=== PATIENT | male | born 1985 | race Two or more races ===

== ENCOUNTER 2021-02-26 10:01 | Inpatient (IN) | payer OTHER ==
[~2021-02-26] VITALS: Ht 177.8 cm; Wt 78.5 kg
[2021-02-26] MEDS ORDERED: ACETAMINOPHEN 325 MG TABLET PO PRN (10:30)
[2021-02-26 10:39] LABS: EOSINOPHILS % (AUTO) 1.1 % (1.0-6.0); HEMATOCRIT 44.2 % (41-53); HEMOGLOBIN 13.9 g/dL (13.5-17.5); LYMPHOCYTES # (AUTO) 1.6 K/uL (1.0-4.8); MEAN CORPUSCULAR HEMOGLOBIN 21.7 pg (26.0-34.0); MEAN CORPUSCULAR HGB CONC 31.5 G/dL (31.0-37.0); MEAN CORPUSCULAR VOLUME 69 fL (80-100); MONOCYTES # (AUTO) 1.1 K/uL (0.1-1.0); MONOCYTES % (AUTO) 7.8 % (2.0-9.0); NEUTROPHILS # (AUTO) 11.6 K/uL (1.8-7.7); NEUTROPHILS % (AUTO) 79.1 % (40.0-70.0); PLATELET COUNT (AUTO) 282 K/uL (150-450); RED BLOOD CELL COUNT(AUTO) 6.42 MIL/uL (4.50-5.90); RED CELL DISTRIBUTION WIDTH 16.9 % (11.5-14.5)
[2021-02-26 10:52] LABS: COVID AG,FIA SOURCE NASOPHARYNGEAL
[2021-02-26 10:58] LABS: ANION GAP 7 mmol/L (8-16); CALCIUM, TOTAL 8.9 mg/dL (8.8-10.5); CARBON DIOXIDE 30 mmol/L (22-29); CHLORIDE 107 mmol/L (98-107); CREATININE 0.79 mg/dL (0.60-1.30); GLOMERULAR FILTR. RATE CALC > 60 mL/min (>60); GLUCOSE,RANDOM 87 mg/dL (70-110); POTASSIUM 4.8 mmol/L (3.5-5.1); SODIUM SERUM 144 mmol/L (136-145); UREA NITROGEN, BLOOD 15 mg/dL (7-18)
[2021-02-26 11:12] LABS: ALANINE AMINOTRANSFERASE 54 U/L (12-78); ALBUMIN 4.2 g/dL (3.4-5.0); ALKALINE PHOSPHATASE 78 U/L (46-116); ASPARTATE AMINOTRANSFERASE 31 U/L (15-37); CHOL/HDL RATIO 2.4 (4.2-7.3); CHOLESTEROL 154 mg/dL (131-200); FREE T4 (FREE THYROXINE) 1.12 ng/dL (0.76-1.46); HDL CHOLESTEROL 63 mg/dL (40-60); LDL CHOL (CALC.) 79 mg/dL (0-130); THYROID STIMULATING HORMONE 0.77 uIU/mL (0.36-3.74); TOTAL PROTEIN, SERUM 7.3 g/dL (6.4-8.2); TRIGLYCERIDES 61 mg/dL (15-150)
[2021-02-26] MEDS ORDERED: 0.9% SODIUM CHLORIDE 10 ML SYRINGE IVP PRN (12:15)
[2021-02-26] MEDS ORDERED: IPRATROPIUM BROMIDE 0.5 MG/2.5 ML NEB SOLUTION NEB PRN (12:15)
[2021-02-26] MEDS ORDERED: BISACODYL 10 MG RECTAL RECTAL SUPPOSITORY PR PRN (12:15)
[2021-02-26] MEDS ORDERED: ONDANSETRON HCL 4 MG/2 ML VIAL IVP PRN (12:15)
[2021-02-26] MEDS ORDERED: MAGNESIUM HYDROXIDE SUSPENSION 30 ML UDCUP PO PRN (12:15)
[2021-02-26] MEDS ORDERED: ALBUTEROL SULFATE 2.5 MG/0.5 ML NEB SOLUTION NEB PRN (12:15)
[2021-02-26] MEDS: PANTOPRAZOLE SODIUM 40 MG DR TABLET PO SCH (12:34)
[2021-02-26 12:51] LABS: % IRON SATURATION 46.1 % (30-44); IRON, SERUM 174 mcg/dL (50-175); TOTAL IRON BINDING CAPACITY 377 mcg/dL (250-450)
[2021-02-26 13:04] LABS: FERRITIN 187 ng/mL (26-388)
[2021-02-26] MEDS ORDERED: SODIUM CHLORIDE 0.9% 1,000 ML IV SCH (16:00)
[2021-02-26] MEDS: TraMADol HCL 50 MG TABLET PO PRN ×2 (16:25→20:15)
[2021-02-26] MEDS: ACETAMINOPHEN 325 MG TABLET PO PRN (17:37)
[2021-02-26 17:42] VITALS: BP 122/78
[2021-02-26 20:15] VITALS: BP 121/69
[2021-02-27] MEDS ORDERED: IOHEXOL 350 MG/ML 100 ML VIAL ONE (02:47)
[2021-02-27] MEDS ORDERED: SODIUM CHLORIDE 0.9% 100 ML ONE (02:47)
[2021-02-27 03:55] VITALS: BP 109/67
[2021-02-27] MEDS: TraMADol HCL 50 MG TABLET PO PRN ×3 (05:18→20:54)
[2021-02-27] MEDS ORDERED: SODIUM CHLORIDE 0.9% 1,000 ML ONE (06:35)
[2021-02-27] MEDS: SODIUM CHLORIDE 0.9% 1,000 ML IV SCH (06:54)
[2021-02-27 07:33] LABS: BASOPHILS % (AUTO) 1.3 % (0.0-2.0); HEMATOCRIT 40.8 % (41-53); HEMOGLOBIN 12.9 g/dL (13.5-17.5); LYMPHOCYTES # (AUTO) 1.4 K/uL (1.0-4.8); MEAN CORPUSCULAR HEMOGLOBIN 21.7 pg (26.0-34.0); MEAN CORPUSCULAR HGB CONC 31.6 G/dL (31.0-37.0); MEAN CORPUSCULAR VOLUME 69 fL (80-100); MONOCYTES # (AUTO) 0.6 K/uL (0.1-1.0); MONOCYTES % (AUTO) 8.5 % (2.0-9.0); NEUTROPHILS # (AUTO) 5.3 K/uL (1.8-7.7); NEUTROPHILS % (AUTO) 70.2 % (40.0-70.0); PLATELET COUNT (AUTO) 246 K/uL (150-450); RED BLOOD CELL COUNT(AUTO) 5.93 MIL/uL (4.50-5.90); RED CELL DISTRIBUTION WIDTH 17.3 % (11.5-14.5)
[2021-02-27 07:48] VITALS: BP 119/70
[2021-02-27 08:00] LABS: ALANINE AMINOTRANSFERASE 47 U/L (12-78); ALBUMIN 3.4 g/dL (3.4-5.0); ALKALINE PHOSPHATASE 69 U/L (46-116); ANION GAP 9 mmol/L (8-16); ASPARTATE AMINOTRANSFERASE 31 U/L (15-37); BILIRUBIN,TOTAL 1.1 mg/dL (0.1-1.0); CALCIUM, TOTAL 8.5 mg/dL (8.8-10.5); CARBON DIOXIDE 26 mmol/L (22-29); CHLORIDE 105 mmol/L (98-107); CREATININE 0.73 mg/dL (0.60-1.30); GLOMERULAR FILTR. RATE CALC > 60 mL/min (>60); GLUCOSE,RANDOM 129 mg/dL (70-110); POTASSIUM 3.8 mmol/L (3.5-5.1); SODIUM SERUM 140 mmol/L (136-145); TOTAL PROTEIN, SERUM 6.2 g/dL (6.4-8.2); UREA NITROGEN, BLOOD 10 mg/dL (7-18)
[2021-02-27 08:06] LABS: HIV 1-2 SCREEN 4TH GEN W/RFLX Non Reactive (Non Reactive)
[2021-02-27 08:36] LABS: APPEARANCE,URINE CLEAR (CLEAR); BILIRUBIN,URINE NEGATIVE (NEGATIVE); GLUCOSE, URINE (UA) NEGATIVE (NEGATIVE); KETONES,URINE NEGATIVE (NEGATIVE); LEUKOCYTE ESTERASE ,URINE NEGATIVE (NEGATIVE); NITRATE,URINE NEGATIVE (NEGATIVE); OCCULT BLOOD,URINE NEGATIVE (NEGATIVE); PH,URINE 5.5 (5.0-8.0); PROTEIN,URINE NEGATIVE (NEGATIVE)
[2021-02-27 08:45] LABS: AMPHET/METH SCREEN,URINE POSITIVE (NEGATIVE); BARBITURATE SCREEN, URINE NEGATIVE (NEGATIVE); BENZODIAZEPINES SCREEN,URINE NEGATIVE (NEGATIVE); CANNABINOID SCREEN,URINE POSITIVE (NEGATIVE); COCAINE SCREEN,URINE NEGATIVE (NEGATIVE); METHADONE SCREEN, URINE NEGATIVE (NEGATIVE); OPIATE SCREEN,URINE NEGATIVE (NEGATIVE)
[2021-02-27 08:47] LABS: PHENCYCLIDINE SCREEN,URINE NEGATIVE (NEGATIVE)
[2021-02-27 09:07] LABS: BACTERIA,URINE None Seen /HPF (None Seen); RBC,URINE None Seen /HPF (0-2); WBC,URINE None Seen /HPF (0-5)
[2021-02-27] MEDS ORDERED: HydrOXYzine PAMOATE 50 MG CAPSULE PO PRN (09:45)
[2021-02-27] MEDS: PANTOPRAZOLE SODIUM 40 MG DR TABLET PO SCH ×2 (09:50→10:02)
[2021-02-27] MEDS: OLANZapine 5 MG TABLET PO SCH ×2 (10:02→20:54)
[2021-02-27 19:30] VITALS: BP 119/68
[2021-02-27] MEDS: KETOROLAC TROMETHAMINE 30 MG/ML VIAL IVP PRN (21:42)
[2021-02-28 05:56] VITALS: BP 101/61
[2021-02-28] MEDS: KETOROLAC TROMETHAMINE 30 MG/ML VIAL IVP PRN ×2 (06:35→18:09)
[2021-02-28 07:07] LABS: QUANTIFERON, TB GOLD PLUS Positive (Negative)
[2021-02-28 08:04] VITALS: BP 110/66
[2021-02-28] MEDS: OLANZapine 5 MG TABLET PO SCH ×3 (08:27→20:48)
[2021-02-28] MEDS: TraMADol HCL 50 MG TABLET PO PRN (08:51)
[2021-02-28] MEDS: SODIUM CHLORIDE 0.9% 1,000 ML IV SCH ×3 (09:40→23:21)
[2021-02-28] MEDS: FLUoxetine HCL 20 MG CAPSULE PO SCH (13:20)
[2021-02-28 20:27] VITALS: BP 112/53
[2021-03-01 05:20] VITALS: BP 118/70
[2021-03-01] MEDS: ACETAMINOPHEN 325 MG TABLET PO PRN (06:05)
[2021-03-01 07:43] VITALS: BP 106/55
[2021-03-01] MEDS: FLUoxetine HCL 20 MG CAPSULE PO SCH (08:35)
[2021-03-01] MEDS: OLANZapine 5 MG TABLET PO SCH ×2 (08:35→21:00)
[2021-03-01] MEDS: PANTOPRAZOLE SODIUM 40 MG DR TABLET PO SCH (08:35)
[2021-03-01] MEDS: KETOROLAC TROMETHAMINE 30 MG/ML VIAL IVP PRN ×2 (08:36→16:59)
[2021-03-01] MEDS: SODIUM CHLORIDE 0.9% 1,000 ML IV SCH (13:07)
[2021-03-01 15:36] VITALS: BP 113/66
[2021-03-01 19:30] VITALS: BP 119/67
[2021-03-01] MEDS: TraMADol HCL 50 MG TABLET PO PRN (21:44)
[2021-03-02] MEDS: SODIUM CHLORIDE 0.9% 1,000 ML IV SCH (01:22)
[2021-03-02 04:00] VITALS: BP 113/62
[2021-03-02 07:56] VITALS: BP 114/60
[2021-03-02] MEDS: OLANZapine 5 MG TABLET PO SCH ×2 (08:56→20:48)
[2021-03-02] MEDS: PANTOPRAZOLE SODIUM 40 MG DR TABLET PO SCH (08:56)
[2021-03-02] MEDS: FLUoxetine HCL 20 MG CAPSULE PO SCH (08:56)
[2021-03-02] MEDS: TraMADol HCL 50 MG TABLET PO PRN ×3 (09:22→20:50)
[2021-03-02] MEDS: BENZOCAINE 10% 7 GM GEL TP PRN ×2 (15:36→23:02)
[2021-03-02 19:45] VITALS: BP 107/67
[2021-03-03 03:55] VITALS: BP 106/55
[2021-03-03 07:52] VITALS: BP 103/79
[2021-03-03] MEDS: BENZOCAINE 10% 7 GM GEL TP PRN ×2 (08:38→18:44)
[2021-03-03] MEDS: FLUoxetine HCL 20 MG CAPSULE PO SCH (08:38)
[2021-03-03] MEDS: TraMADol HCL 50 MG TABLET PO PRN ×2 (08:38→18:44)
[2021-03-03] MEDS: DOCUSATE SODIUM 100 MG CAPSULE PO PRN (08:38)
[2021-03-03] MEDS: PANTOPRAZOLE SODIUM 40 MG DR TABLET PO SCH (08:38)
[2021-03-03] MEDS: OLANZapine 5 MG TABLET PO SCH ×2 (08:43→20:07)
[2021-03-03] MEDS: TraZODone HCL 50 MG TABLET PO PRN (20:07)
[2021-03-03 20:10] VITALS: BP 118/83
[2021-03-04 04:25] VITALS: BP 97/62
[2021-03-04 08:13] VITALS: BP 110/71
[2021-03-04] MEDS: OLANZapine 5 MG TABLET PO SCH (08:30)
[2021-03-04] MEDS: FLUoxetine HCL 20 MG CAPSULE PO SCH (08:30)
[2021-03-04] MEDS: PANTOPRAZOLE SODIUM 40 MG DR TABLET PO SCH (08:30)
[2021-03-04] MEDS: BENZOCAINE 10% 7 GM GEL TP PRN (10:06)
[2021-03-04] MEDS: ACETAMINOPHEN 325 MG TABLET PO PRN ×2 (10:06→14:25)
[2021-03-04 12:06] LABS: U HISTOPLASMA GALACTOMANNAN AG <0.5 (<0.5 ng/mL)
[2021-03-04] MEDS: MIRTAZAPINE 15 MG TABLET PO SCH (20:02)
[2021-03-04] MEDS: OLANZapine 10 MG TABLET PO SCH (20:02)
[2021-03-04] MEDS: TraZODone HCL 50 MG TABLET PO PRN (20:02)
[2021-03-04 20:05] VITALS: BP 118/77
[2021-03-04] MEDS: TraMADol HCL 50 MG TABLET PO PRN (20:07)
[2021-03-05 04:45] VITALS: BP 110/61
[2021-03-05 08:15] VITALS: BP 153/74
[2021-03-05] MEDS: FLUoxetine HCL 20 MG CAPSULE PO SCH (08:42)
[2021-03-05] MEDS: OLANZapine 10 MG TABLET PO SCH ×2 (08:42→20:22)
[2021-03-05] MEDS: PANTOPRAZOLE SODIUM 40 MG DR TABLET PO SCH (08:42)
[2021-03-05] MEDS: RIFAMPIN 300 MG CAPSULE PO SCH (14:50)
[2021-03-05] MEDS: ETHAMBUTOL HCL 400 MG TABLET PO SCH (14:51)
[2021-03-05] MEDS: ISONIAZID 300 MG TABLET PO SCH (14:51)
[2021-03-05] MEDS: PYRAZINAMIDE 500 MG TABLET PO SCH (14:51)
[2021-03-05] MEDS: TraMADol HCL 50 MG TABLET PO PRN (14:58)
[2021-03-05] MEDS: PYRIDOXINE HCL 50 MG TABLET PO SCH (14:58)
[2021-03-05] MEDS: MIRTAZAPINE 15 MG TABLET PO SCH (20:22)
[2021-03-05] MEDS: ACETAMINOPHEN 325 MG TABLET PO PRN (20:30)
[2021-03-05 20:33] VITALS: BP 113/60
[2021-03-05] MEDS: TraZODone HCL 50 MG TABLET PO PRN (22:08)
[2021-03-06 02:48] VITALS: BP 147/51
[2021-03-06 04:40] VITALS: BP 104/67
[2021-03-06 08:32] VITALS: BP 118/70
[2021-03-06] MEDS: PYRAZINAMIDE 500 MG TABLET PO SCH (08:32)
[2021-03-06] MEDS: ISONIAZID 300 MG TABLET PO SCH (08:32)
[2021-03-06] MEDS: RIFAMPIN 300 MG CAPSULE PO SCH (08:32)
[2021-03-06] MEDS: PANTOPRAZOLE SODIUM 40 MG DR TABLET PO SCH (08:32)
[2021-03-06] MEDS: FLUoxetine HCL 20 MG CAPSULE PO SCH (08:32)
[2021-03-06] MEDS: OLANZapine 10 MG TABLET PO SCH ×2 (08:33→20:10)
[2021-03-06] MEDS: ETHAMBUTOL HCL 400 MG TABLET PO SCH (08:33)
[2021-03-06] MEDS: PYRIDOXINE HCL 50 MG TABLET PO SCH (08:33)
[2021-03-06] MEDS: BENZOCAINE 10% 7 GM GEL TP PRN (08:45)
[2021-03-06] MEDS: TraMADol HCL 50 MG TABLET PO PRN (17:50)
[2021-03-06] MEDS: MIRTAZAPINE 15 MG TABLET PO SCH (20:10)
[2021-03-06 20:51] VITALS: BP 107/69
[2021-03-07 05:10] VITALS: BP 107/58
[2021-03-07] MEDS: OLANZapine 10 MG TABLET PO SCH ×2 (07:57→20:19)
[2021-03-07] MEDS: FLUoxetine HCL 20 MG CAPSULE PO SCH (07:57)
[2021-03-07] MEDS: PANTOPRAZOLE SODIUM 40 MG DR TABLET PO SCH (07:57)
[2021-03-07] MEDS: ISONIAZID 300 MG TABLET PO SCH (07:57)
[2021-03-07] MEDS: RIFAMPIN 300 MG CAPSULE PO SCH (07:57)
[2021-03-07] MEDS: PYRAZINAMIDE 500 MG TABLET PO SCH (07:57)
[2021-03-07] MEDS: PYRIDOXINE HCL 50 MG TABLET PO SCH (07:58)
[2021-03-07] MEDS: ETHAMBUTOL HCL 400 MG TABLET PO SCH (07:59)
[2021-03-07 08:01] VITALS: BP 111/69
[2021-03-07] MEDS: BENZOCAINE 10% 7 GM GEL TP PRN (08:05)
[2021-03-07] MEDS: TraMADol HCL 50 MG TABLET PO PRN ×2 (08:05→18:19)
[2021-03-07] MEDS: MIRTAZAPINE 15 MG TABLET PO SCH (20:19)
[2021-03-07 20:22] VITALS: BP 129/82
[2021-03-08 05:06] VITALS: BP 114/76
[2021-03-08 08:01] VITALS: BP 107/70
[2021-03-08] MEDS: PANTOPRAZOLE SODIUM 40 MG DR TABLET PO SCH (08:40)
[2021-03-08] MEDS: OLANZapine 10 MG TABLET PO SCH ×2 (08:40→20:33)
[2021-03-08] MEDS: DOCUSATE SODIUM 100 MG CAPSULE PO PRN (08:40)
[2021-03-08] MEDS: ETHAMBUTOL HCL 400 MG TABLET PO SCH (08:40)
[2021-03-08] MEDS: PYRAZINAMIDE 500 MG TABLET PO SCH (08:40)
[2021-03-08] MEDS: PYRIDOXINE HCL 50 MG TABLET PO SCH (08:40)
[2021-03-08] MEDS: BENZOCAINE 10% 7 GM GEL TP PRN ×2 (08:41→20:44)
[2021-03-08] MEDS: RIFAMPIN 300 MG CAPSULE PO SCH (08:41)
[2021-03-08] MEDS: FLUoxetine HCL 20 MG CAPSULE PO SCH (08:41)
[2021-03-08] MEDS: ISONIAZID 300 MG TABLET PO SCH (08:41)
[2021-03-08 19:45] VITALS: BP 130/67
[2021-03-08] MEDS: MIRTAZAPINE 15 MG TABLET PO SCH (20:33)
[2021-03-08] MEDS: ACETAMINOPHEN 325 MG TABLET PO PRN (22:29)
[2021-03-08] MEDS: TraZODone HCL 50 MG TABLET PO PRN (22:30)
[2021-03-09 04:45] VITALS: BP 110/52
[2021-03-09 06:22] LABS: BASOPHILS % (AUTO) 2.2 % (0.0-2.0); EOSINOPHILS % (AUTO) 3.8 % (1.0-6.0); HEMATOCRIT 41.1 % (41-53); HEMOGLOBIN 13.2 g/dL (13.5-17.5); LYMPHOCYTES # (AUTO) 2.6 K/uL (1.0-4.8); LYMPHOCYTES % (AUTO) 29.5 % (22.0-44.0); MEAN CORPUSCULAR HEMOGLOBIN 21.7 pg (26.0-34.0); MEAN CORPUSCULAR VOLUME 68 fL (80-100); MONOCYTES # (AUTO) 0.8 K/uL (0.1-1.0); MONOCYTES % (AUTO) 9.6 % (2.0-9.0); NEUTROPHILS # (AUTO) 4.8 K/uL (1.8-7.7); NEUTROPHILS % (AUTO) 54.9 % (40.0-70.0); PLATELET COUNT (AUTO) 267 K/uL (150-450); RED BLOOD CELL COUNT(AUTO) 6.06 MIL/uL (4.50-5.90)
[2021-03-09 06:45] LABS: ALANINE AMINOTRANSFERASE 70 U/L (12-78); ALBUMIN 3.3 g/dL (3.4-5.0); ALKALINE PHOSPHATASE 113 U/L (46-116); ANION GAP 7 mmol/L (8-16); ASPARTATE AMINOTRANSFERASE 33 U/L (15-37); BILIRUBIN,TOTAL 0.5 mg/dL (0.1-1.0); CALCIUM, TOTAL 8.5 mg/dL (8.8-10.5); CARBON DIOXIDE 28 mmol/L (22-29); CHLORIDE 104 mmol/L (98-107); CREATININE 0.83 mg/dL (0.60-1.30); GLOMERULAR FILTR. RATE CALC > 60 mL/min (>60); GLUCOSE,RANDOM 85 mg/dL (70-110); POTASSIUM 3.9 mmol/L (3.5-5.1); SODIUM SERUM 139 mmol/L (136-145); TOTAL PROTEIN, SERUM 6.2 g/dL (6.4-8.2); UREA NITROGEN, BLOOD 13 mg/dL (7-18)
[2021-03-09 08:00] VITALS: BP 105/61
[2021-03-09] MEDS: RIFAMPIN 300 MG CAPSULE PO SCH (08:24)
[2021-03-09] MEDS: FLUoxetine HCL 20 MG CAPSULE PO SCH (08:24)
[2021-03-09] MEDS: OLANZapine 10 MG TABLET PO SCH ×2 (08:24→21:23)
[2021-03-09] MEDS: ISONIAZID 300 MG TABLET PO SCH (08:24)
[2021-03-09] MEDS: PYRAZINAMIDE 500 MG TABLET PO SCH (08:24)
[2021-03-09] MEDS: PANTOPRAZOLE SODIUM 40 MG DR TABLET PO SCH (08:24)
[2021-03-09] MEDS: ETHAMBUTOL HCL 400 MG TABLET PO SCH (08:25)
[2021-03-09] MEDS: PYRIDOXINE HCL 50 MG TABLET PO SCH (08:28)
[2021-03-09 19:59] VITALS: BP 116/74
[2021-03-09] MEDS: MIRTAZAPINE 15 MG TABLET PO SCH (21:23)
[2021-03-09] MEDS: TraMADol HCL 50 MG TABLET PO PRN (23:03)
[2021-03-09] MEDS: BENZOCAINE 10% 7 GM GEL TP PRN (23:04)
[2021-03-10 05:15] VITALS: BP 118/80
[2021-03-10 07:57] VITALS: BP 124/67
[2021-03-10] MEDS: PYRIDOXINE HCL 50 MG TABLET PO SCH (09:12)
[2021-03-10] MEDS: PANTOPRAZOLE SODIUM 40 MG DR TABLET PO SCH (09:12)
[2021-03-10] MEDS: PYRAZINAMIDE 500 MG TABLET PO SCH (09:12)
[2021-03-10] MEDS: ISONIAZID 300 MG TABLET PO SCH (09:12)
[2021-03-10] MEDS: OLANZapine 10 MG TABLET PO SCH ×2 (09:12→21:22)
[2021-03-10] MEDS: FLUoxetine HCL 20 MG CAPSULE PO SCH (09:12)
[2021-03-10] MEDS: ETHAMBUTOL HCL 400 MG TABLET PO SCH (09:12)
[2021-03-10] MEDS: RIFAMPIN 300 MG CAPSULE PO SCH (09:13)
[2021-03-10 20:21] VITALS: BP 119/73
[2021-03-10] MEDS: MIRTAZAPINE 15 MG TABLET PO SCH (21:23)
[2021-03-11 05:22] VITALS: BP 105/55
[2021-03-11 07:36] VITALS: BP 94/68
[2021-03-11] MEDS: PYRAZINAMIDE 500 MG TABLET PO SCH (09:26)
[2021-03-11] MEDS: OLANZapine 10 MG TABLET PO SCH (09:27)
[2021-03-11] MEDS: FLUoxetine HCL 20 MG CAPSULE PO SCH (09:27)
[2021-03-11] MEDS: PYRIDOXINE HCL 50 MG TABLET PO SCH (09:27)
[2021-03-11] MEDS: RIFAMPIN 300 MG CAPSULE PO SCH (09:27)
[2021-03-11] MEDS: ISONIAZID 300 MG TABLET PO SCH (09:27)
[2021-03-11] MEDS: PANTOPRAZOLE SODIUM 40 MG DR TABLET PO SCH (09:27)
[2021-03-11] MEDS: ETHAMBUTOL HCL 400 MG TABLET PO SCH (09:29)
[2021-03-11] MEDS ORDERED: RIFAMPIN PO (12:55)
[2021-03-11] MEDS ORDERED: MYAMBUTOL PO (13:10)
[2021-03-11] MEDS ORDERED: PYRAZINAMIDE PO (13:10)
[2021-03-11] MEDS ORDERED: PYRI-12 PO (13:10)
[2021-03-11] MEDS ORDERED: FLUO20CA36 PO (13:10)
[2021-03-11] MEDS ORDERED: ISONIAZID PO (13:10)
[2021-03-11] MEDS ORDERED: OLAN10TA74 PO (13:10)
[2021-03-11] MEDS ORDERED: MIRT-89 PO (13:10)
== END 2021-03-11 15:00 | DRG 885 ==
LOC: EMS 10:01 → 6S 10:59
PROVIDERS: ADMIT Internal Medicine; ATTEND Internal Medicine
DX: F20.0 Paranoid schizophrenia (principal); R45.851 Suicidal ideations; R76.11 Nonspecific reaction to tuberculin skin test without active tuberculosis; Z20.822 Contact with and (suspected) exposure to COVID-19; F41.9 Anxiety disorder, unspecified; K08.89 Other specified disorders of teeth and supporting structures; F15.10 Other stimulant abuse, uncomplicated; F12.10 Cannabis abuse, uncomplicated; R91.8 Other nonspecific abnormal finding of lung field; Z87.891 Personal history of nicotine dependence
CPT/HCPCS: 70487; 71046; 71250; 80053; 80061; 80307; 81001; 82270; 82728; 83540; 83550; 84145; 84439; 84443; 85025; 86403; 86480; 86635; 87015; 87040; 87206; 87385; 87389; 87449; 87556; 87798; 94640; 99285; A9575; G0480; J1885; J2405; J7030; J7050; 36415-L1; 36415-TC

== ENCOUNTER 2021-10-13 15:04 | Inpatient (IN) | payer OTHER ==
[~2021-10-13] VITALS: Ht 185.4 cm; Wt 123.0 kg
[~2021-10-13 15:04] MED LIST: FLUO20CA36 PO; ISONIAZID PO; MIRT-89 PO; MYAMBUTOL PO; OLAN10TA74 PO; PYRAZINAMIDE PO; PYRI-12 PO; RIFAMPIN PO
[2021-10-13] MEDS ORDERED: ONDANSETRON HCL 4 MG/2 ML VIAL IVP PRN ×2 (16:15→17:00)
[2021-10-13] MEDS ORDERED: 0.9% SODIUM CHLORIDE 10 ML SYRINGE IVP PRN (16:15)
[2021-10-13] MEDS ORDERED: ACETAMINOPHEN 325 MG TABLET PO PRN ×2 (16:15→17:00)
[2021-10-13 16:53] LABS: COVID AG,FIA SOURCE NASOPHARYNGEAL
[2021-10-13 16:59] LABS: BASOPHILS % (AUTO) 1.3 % (0.0-2.0); EOSINOPHILS % (AUTO) 2.9 % (1.0-6.0); HEMATOCRIT 45.2 % (41-53); HEMOGLOBIN 14.6 g/dL (13.5-17.5); LYMPHOCYTES # (AUTO) 1.2 K/uL (1.0-4.8); LYMPHOCYTES % (AUTO) 19.5 % (22.0-44.0); MEAN CORPUSCULAR HEMOGLOBIN 21.8 pg (26.0-34.0); MEAN CORPUSCULAR HGB CONC 32.2 G/dL (31.0-37.0); MEAN CORPUSCULAR VOLUME 68 fL (80-100); MONOCYTES # (AUTO) 1.9 K/uL (0.1-1.0); MONOCYTES % (AUTO) 30.6 % (2.0-9.0); NEUTROPHILS # (AUTO) 2.8 K/uL (1.8-7.7); NEUTROPHILS % (AUTO) 45.7 % (40.0-70.0); PLATELET COUNT (AUTO) 182 K/uL (150-450); RED BLOOD CELL COUNT(AUTO) 6.69 MIL/uL (4.50-5.90); RED CELL DISTRIBUTION WIDTH 15.8 % (11.5-14.5)
[2021-10-13] MEDS ORDERED: HYDROCODONE/ACETAMINOPHEN 5-325 MG TABLET PO PRN (17:00)
[2021-10-13] MEDS ORDERED: ZOLPIDEM TARTRATE 5 MG TABLET PO PRN (17:00)
[2021-10-13] MEDS ORDERED: MAGNESIUM HYDROXIDE SUSPENSION 30 ML UDCUP PO PRN (17:00)
[2021-10-13] MEDS ORDERED: BISACODYL 10 MG RECTAL RECTAL SUPPOSITORY PR PRN (17:00)
[2021-10-13] MEDS ORDERED: ETHA400 PO (17:15)
[2021-10-13] MEDS ORDERED: ISON300 PO (17:15)
[2021-10-13] MEDS ORDERED: PYRA500 PO (17:15)
[2021-10-13] MEDS ORDERED: RIFA300 PO (17:15)
[2021-10-13 17:17] LABS: D-DIMER 0.19 mg/L FEU (0.00-0.50); PROTHROMBIN TIME 10.6 SEC (9.4-11.6)
[2021-10-13 17:18] LABS: LACTIC ACID 0.6 mmol/L (0.4-2.0)
[2021-10-13 17:24] LABS: ANION GAP 7 mmol/L (8-16); CALCIUM, TOTAL 8.4 mg/dL (8.8-10.5); CARBON DIOXIDE 27 mmol/L (22-29); CHLORIDE 104 mmol/L (98-107); CREATININE 0.91 mg/dL (0.60-1.30); GLOMERULAR FILTR. RATE CALC > 60 mL/min (>60); GLUCOSE,RANDOM 89 mg/dL (70-110); POTASSIUM 4.2 mmol/L (3.5-5.1); SODIUM SERUM 138 mmol/L (136-145); UREA NITROGEN, BLOOD 15 mg/dL (7-18)
[2021-10-13 17:26] LABS: B-TYPE NATRIURETIC PEPTIDE 7 pg/mL (0-100)
[2021-10-13 17:31] LABS: INFLUENZA TYPE A NEGATIVE FOR TYPE A (NEGATIVE); INFLUENZA TYPE B NEGATIVE FOR TYPE B (NEGATIVE)
[2021-10-13] MEDS: MORPHINE SULFATE 2 MG/ML SYRINGE IVP PRN (17:35)
[2021-10-13] MEDS ORDERED: IOHEXOL 350 MG/ML 100 ML VIAL ONE (17:37)
[2021-10-13] MEDS ORDERED: SODIUM CHLORIDE 0.9% 100 ML ONE (17:37)
[2021-10-13 17:46] LABS: ALANINE AMINOTRANSFERASE 107 U/L (12-78); ALBUMIN 3.6 g/dL (3.4-5.0); ALKALINE PHOSPHATASE 101 U/L (46-116); ASPARTATE AMINOTRANSFERASE 53 U/L (15-37); BILIRUBIN,TOTAL 0.6 mg/dL (0.1-1.0); C-REACTIVE PROTEIN QUANT 1.01 mg/dL (0.00-0.30); CREATINE KINASE, TOTAL ONLY 205 U/L (39-308); FERRITIN 95 ng/mL (26-388); LACTATE DEHYDROGENASE 204 U/L (85-227); LIPASE 91 U/L (73-393); TOTAL PROTEIN, SERUM 7.4 g/dL (6.4-8.2)
[2021-10-13 18:32] LABS: APPEARANCE,URINE CLEAR (CLEAR); BILIRUBIN,URINE NEGATIVE (NEGATIVE); GLUCOSE, URINE (UA) NEGATIVE (NEGATIVE); KETONES,URINE NEGATIVE (NEGATIVE); LEUKOCYTE ESTERASE ,URINE NEGATIVE (NEGATIVE); NITRATE,URINE NEGATIVE (NEGATIVE); OCCULT BLOOD,URINE NEGATIVE (NEGATIVE); PH,URINE 5.5 (5.0-8.0); PROTEIN,URINE NEGATIVE (NEGATIVE)
[2021-10-13 18:36] LABS: AMPHET/METH SCREEN,URINE NEGATIVE (NEGATIVE); BARBITURATE SCREEN, URINE NEGATIVE (NEGATIVE); BENZODIAZEPINES SCREEN,URINE NEGATIVE (NEGATIVE); CANNABINOID SCREEN,URINE NEGATIVE (NEGATIVE); COCAINE SCREEN,URINE NEGATIVE (NEGATIVE); METHADONE SCREEN, URINE NEGATIVE (NEGATIVE); OPIATE SCREEN,URINE NEGATIVE (NEGATIVE)
[2021-10-13 18:38] LABS: PHENCYCLIDINE SCREEN,URINE NEGATIVE (NEGATIVE)
[2021-10-13 18:40] LABS: BACTERIA,URINE Rare /HPF (None Seen); RBC,URINE None Seen /HPF (0-2); WBC,URINE 0-2 /HPF (0-5)
[2021-10-13] MEDS: MIRTAZAPINE 15 MG TABLET PO SCH (21:33)
[2021-10-13] MEDS: OLANZapine 10 MG TABLET PO SCH (21:33)
[2021-10-13] MEDS: DOCUSATE SODIUM 100 MG CAPSULE PO SCH (21:34)
[2021-10-14] MEDS: HEPARIN SODIUM,PORCINE 5,000 UNITS/ML VIAL SQ SCH ×4 (00:53→23:47)
[2021-10-14 07:20] LABS: BASOPHILS % (AUTO) 3.7 % (0.0-2.0); EOSINOPHILS % (AUTO) 5.3 % (1.0-6.0); HEMATOCRIT 47.1 % (41-53); HEMOGLOBIN 15.3 g/dL (13.5-17.5); LYMPHOCYTES # (AUTO) 1.7 K/uL (1.0-4.8); LYMPHOCYTES % (AUTO) 31.7 % (22.0-44.0); MEAN CORPUSCULAR HEMOGLOBIN 22.1 pg (26.0-34.0); MEAN CORPUSCULAR HGB CONC 32.5 G/dL (31.0-37.0); MEAN CORPUSCULAR VOLUME 68 fL (80-100); MONOCYTES # (AUTO) 1.4 K/uL (0.1-1.0); MONOCYTES % (AUTO) 26.3 % (2.0-9.0); NEUTROPHILS # (AUTO) 1.7 K/uL (1.8-7.7); PLATELET COUNT (AUTO) 192 K/uL (150-450); RED BLOOD CELL COUNT(AUTO) 6.92 MIL/uL (4.50-5.90); RED CELL DISTRIBUTION WIDTH 16.1 % (11.5-14.5)
[2021-10-14 07:46] LABS: ALANINE AMINOTRANSFERASE 90 U/L (12-78); ALBUMIN 3.2 g/dL (3.4-5.0); ALKALINE PHOSPHATASE 90 U/L (46-116); ANION GAP 6 mmol/L (8-16); ASPARTATE AMINOTRANSFERASE 45 U/L (15-37); BILIRUBIN,TOTAL 0.6 mg/dL (0.1-1.0); C-REACTIVE PROTEIN QUANT 0.63 mg/dL (0.00-0.30); CALCIUM, TOTAL 8.2 mg/dL (8.8-10.5); CARBON DIOXIDE 30 mmol/L (22-29); CHLORIDE 106 mmol/L (98-107); CREATININE 0.92 mg/dL (0.60-1.30); FERRITIN 86 ng/mL (26-388); GLOMERULAR FILTR. RATE CALC > 60 mL/min (>60); GLUCOSE,RANDOM 94 mg/dL (70-110); SODIUM SERUM 142 mmol/L (136-145); TOTAL PROTEIN, SERUM 6.8 g/dL (6.4-8.2); UREA NITROGEN, BLOOD 13 mg/dL (7-18)
[2021-10-14] MEDS: OLANZapine 10 MG TABLET PO SCH ×2 (08:05→21:54)
[2021-10-14] MEDS: PANTOPRAZOLE SODIUM 40 MG DR TABLET PO SCH (08:05)
[2021-10-14] MEDS: DOCUSATE SODIUM 100 MG CAPSULE PO SCH ×2 (08:05→21:53)
[2021-10-14] MEDS ORDERED: ALBUTEROL SULFATE HFA 90 MCG/PUFF 8 GM INHALER IH PRN (09:00)
[2021-10-14] MEDS: FLUoxetine HCL 20 MG CAPSULE PO SCH (11:24)
[2021-10-14] MEDS: MORPHINE SULFATE 2 MG/ML SYRINGE IVP PRN (11:24)
[2021-10-14 15:44] VITALS: BP 131/75
[2021-10-14 20:52] VITALS: BP 126/72
[2021-10-14] MEDS: MIRTAZAPINE 15 MG TABLET PO SCH (21:54)
[2021-10-15 05:52] VITALS: BP 110/73
[2021-10-15 06:49] LABS: BASOPHILS % (AUTO) 1.7 % (0.0-2.0); EOSINOPHILS % (AUTO) 5.7 % (1.0-6.0); HEMOGLOBIN 15.5 g/dL (13.5-17.5); LYMPHOCYTES % (AUTO) 35.9 % (22.0-44.0); MEAN CORPUSCULAR HEMOGLOBIN 22.4 pg (26.0-34.0); MEAN CORPUSCULAR HGB CONC 32.9 G/dL (31.0-37.0); MEAN CORPUSCULAR VOLUME 68 fL (80-100); MONOCYTES % (AUTO) 18.7 % (2.0-9.0); NEUTROPHILS # (AUTO) 2.1 K/uL (1.8-7.7); PLATELET COUNT (AUTO) 195 K/uL (150-450); RED BLOOD CELL COUNT(AUTO) 6.92 MIL/uL (4.50-5.90); RED CELL DISTRIBUTION WIDTH 16.3 % (11.5-14.5)
[2021-10-15 07:28] LABS: ALANINE AMINOTRANSFERASE 80 U/L (12-78); ALBUMIN 3.2 g/dL (3.4-5.0); ALKALINE PHOSPHATASE 93 U/L (46-116); ANION GAP 5 mmol/L (8-16); ASPARTATE AMINOTRANSFERASE 38 U/L (15-37); BILIRUBIN,TOTAL 0.5 mg/dL (0.1-1.0); C-REACTIVE PROTEIN QUANT 0.33 mg/dL (0.00-0.30); CALCIUM, TOTAL 8.8 mg/dL (8.8-10.5); CARBON DIOXIDE 29 mmol/L (22-29); CHLORIDE 106 mmol/L (98-107); CREATININE 0.87 mg/dL (0.60-1.30); FERRITIN 95 ng/mL (26-388); GLOMERULAR FILTR. RATE CALC > 60 mL/min (>60); GLUCOSE,RANDOM 92 mg/dL (70-110); POTASSIUM 3.9 mmol/L (3.5-5.1); SODIUM SERUM 140 mmol/L (136-145); TOTAL PROTEIN, SERUM 7.1 g/dL (6.4-8.2); UREA NITROGEN, BLOOD 12 mg/dL (7-18)
[2021-10-15 08:41] VITALS: BP_SYST 106; BP_SYST 93; BP_DIAS 60; BP_DIAS 62
[2021-10-15] MEDS: OLANZapine 10 MG TABLET PO SCH (09:18)
[2021-10-15] MEDS: PANTOPRAZOLE SODIUM 40 MG DR TABLET PO SCH (09:18)
[2021-10-15] MEDS: DOCUSATE SODIUM 100 MG CAPSULE PO SCH (09:18)
[2021-10-15] MEDS: FLUoxetine HCL 20 MG CAPSULE PO SCH (09:18)
[2021-10-15] MEDS: HEPARIN SODIUM,PORCINE 5,000 UNITS/ML VIAL SQ SCH ×2 (09:18→16:03)
[2021-10-15 15:36] VITALS: BP 108/65
[2021-10-15] MEDS ORDERED: DOCU-270 PO (15:50)
[2021-10-15] MEDS ORDERED: PANT-31 PO (15:50)
[2021-10-15] MEDS ORDERED: ACET-2247 PO (15:51)
[2021-10-15] MEDS ORDERED: ALBU8HFA IH (15:52)
[2021-10-15] MEDS ORDERED: MOM30 PO (15:52)
== END 2021-10-15 17:42 | DRG 179 ==
LOC: EMS 15:04 → 6S 10-14 15:03
PROVIDERS: ADMIT Internal Medicine; ATTEND Internal Medicine
DX: U07.1 COVID-19 (principal); G40.909 Epilepsy, unspecified, not intractable, without status epilepticus; F17.210 Nicotine dependence, cigarettes, uncomplicated; R79.89 Other specified abnormal findings of blood chemistry; B19.20 Unspecified viral hepatitis C without hepatic coma; F12.90 Cannabis use, unspecified, uncomplicated; F32.A Depression, unspecified; I10 Essential (primary) hypertension; Z86.15 Personal history of latent tuberculosis infection
CPT/HCPCS: 71045; 71275; 80053; 81001; 82550; 82728; 83605; 83615; 83690; 83735; 83880; 84145; 84484; 85025; 85379; 85384; 85610; 85730; 86140; 87040; 87081; 87804; 93005; 99285; J1644; J2270; J7050; Q9967; 36415-L1; 36415-TC